=== PATIENT | male | born 1945 | race Caucasian/White ===

== ENCOUNTER 2022-04-30 09:45 | Inpatient (IN) ==
--- NOTE | 2022-04-05 14:26 | PAT Medication Instructions ---
Medication Instructions Date of Service April 05, 2022 Home Medications adalimumab 40 mg/0.4 mL subcutaneous syringe kit (Humira(CF)) 40 mg subcut Q14D ascorbic acid (vitamin C) 500 mg tablet (Vitamin C) 500 mg PO QAM hydrochlorothiazide 25 mg tablet 25 mg PO QAM leflunomide 20 mg tablet 20 mg PO QAM losartan 100 mg tablet 100 mg PO QAM metoprolol succinate 25 mg tablet,extended release 24 hr 25 mg PO QAM pantoprazole 40 mg tablet,delayed release 40 mg PO QAM prednisone 10 mg tablet 10 mg PO QAM vitamin E 400 unit tablet 400 mg PO QAM ASK your prescriber and surgeon adalimumab 40 mg/0.4 mL subcutaneous syringe kit (Humira(CF)) 40 mg subcut Q14D leflunomide 20 mg tablet 20 mg PO QAM STOP taking 2 weeks before surgery vitamin E 400 unit tablet 400 mg PO QAM DO NOT take the morning of surgery ascorbic acid (vitamin C) 500 mg tablet (Vitamin C) 500 mg PO QAM hydrochlorothiazide 25 mg tablet 25 mg PO QAM losartan 100 mg tablet 100 mg PO QAM Take morning of surgery With a small sip of water, OTHERWISE NOTHING TO EAT OR DRINK AFTER MIDNIGHT: metoprolol succinate 25 mg tablet,extended release 24 hr 25 mg PO QAM pantoprazole 40 mg tablet,delayed release 40 mg PO QAM prednisone 10 mg tablet 10 mg PO QAM Other Notes If you have any questions please call us at [phone] or [phone] or [phone] or [phone]
--- NOTE | 2022-04-11 12:15 | Anesthesiology Consultation ---
Date of Service April 11, 2022 Assessment & Plan (1) Encounter for pre-operative examination: Chart Review Chart Review: Pending: Refer to Additional Notes / Consult section (cardio optimization/clearance, anesthesia record from July 2020, and PCP clearance 04/16/22) and Patient seen in Pre Admission Testing - Discussed EKG changes with Dr. Salazar- will refer patient to cardio for optimization prior to surgery (pt prefers [facility] if possible) (Pt aware) - Will attempt to get anesthesia records from [facility] from July 2020 shoulder surgery -Awaiting PCP clearance 04/16/22 Possible difficult intubation- will attempt to get records Per PAT appt on 04/11/22, patient denies any recent travel or large group activities. Pt is vaccinated for Covid. Will leave to surgeon's discretion if preop Covid testing needed. Educated on importance of using Covid precautions one week prior to surgery Teaching & Discussion Pre-Anesthesia Teaching/Discussion Notes: Instructed NPO after midnight before surgery,except medications with 15 cc of water. Medication instructions provided according to the PAT guidelines. History Surgery Operation Date: 04/30/22 11:25 Proposed Procedures p L4-L5 Decompression and Fusion, Spinal Cord Monitoring - Shayne Yang DO Height/Weight Height: 5 ft 9 in Weight: 84 kg Allergies Allergy/AdvReac Type Severity Reaction Status Date / Time No Known Allergies Allergy Verified 04/05/22 12:10 Medications Home Medications Medication Instructions Recorded Confirmed Last Taken adalimumab 40 mg/0.4 mL 40 mg subcut Q14D 04/05/22 04/05/22 Unknown subcutaneous syringe kit (Humira(CF)) ascorbic acid (vitamin C) 500 mg 500 mg PO QAM 04/05/22 04/05/22 Unknown tablet (Vitamin C) hydrochlorothiazide 25 mg tablet 25 mg PO QAM 04/05/22 04/05/22 Unknown leflunomide 20 mg tablet 20 mg PO QAM 04/05/22 04/05/22 Unknown losartan 100 mg tablet 100 mg PO QAM 04/05/22 04/05/22 Unknown metoprolol succinate 25 mg 25 mg PO QAM 04/05/22 04/05/22 Unknown tablet,extended release 24 hr pantoprazole 40 mg tablet,delayed 40 mg PO QAM 04/05/22 04/05/22 Unknown release prednisone 10 mg tablet See Rx Instructions .Route .COMPLEX 12/08/22 12/15/22 Unknown vitamin E 400 unit tablet 400 mg PO QAM 04/05/22 04/05/22 Unknown Past Medical History Medical History (Updated 04/12/22 @ 09:14 by Jane Coley PA-C) Chronic back pain Degenerative disc disease Difficult airway for intubation Told by anesthesiologist with July 2020 RCR at [facility] that he may have a sore lip due to "having a little trouble intubating". Pt has no other details; letter not given GERD (gastroesophageal reflux disease) Well controlled and stable History of London's esophagus Goes for routine EGDs- last EGD showed no issues History of bleeding ulcers No recent issues History of Helicobacter pylori infection . No recent issues. 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 arthritis Follows bitumastic applier - stable Exercise / Class Metabolic Activity II 4-5 Yardwork/Stairs/Walk up hill (one flight of stairs - no chest pain or SOB ) Past Family History Family History Other No family history of adverse response to anesthesia Past Surgical History Surgical History History of adenoidectomy History of bowel resection (~1996) r/t large benign colon polyp History of colonoscopy History of esophagogastroduodenoscopy (EGD) History of repair of rotator cuff right History of tonsillectomy S/P epidural steroid injection lumbar x1 Past Anesthesia History No Hx of Anesthesia Complications, Difficult Airway (possible- will attempt to get records ) and No Family Hx of Anesthesia Complications History of PONV No Hx of PONV and No Hx of Motion Sickness Social History Smoking Status: Former smoker tobacco type: cigarettes Do You Dip or Chew Tobacco: No Smoking End Date: 1981 Hx Alcohol Use: Yes Alcohol type: beer alcohol intake frequency: 3 or more drinks per day (3-4 beers/day ) Hx Substance Use: No substance use type: does not use Review of Systems Occ snoring - no witnessed apnea - no hx of sleep study Patient denies chest pain, shortness of breath, dyspnea on exertion, cough, wheezing, palpitations. No hx of seizures, stroke, [place]. No hx of blood clots or blood transfusions Physical Exam Vital Signs VITALS BP 123/76 P 91 TEMP 98.0 SP02 98% RESP 16 Constitutional no acute distress ENMT Mouth: no TMJ clicking Thyromental Distance: > or= 3.5 Finger Breadths (3.5) Mallampati Class: II Neck + limited neck extension (significant ) Respiratory normal respiratory effort; no respiratory distress Auscultation: lungs clear to auscultation bilaterally; no wheezes Cardiovascular Rate/Rhythm: regular rate and regular rhythm Heart Sounds: no murmur Vessels: no carotid bruit Musculoskeletal Spine: no pain with cervical ROM Extremities: extremities normal to inspection Psychiatric Orientation: alert Lab Results Anesthesia Preop Results Results Anesthesia Widget: WBC 10.07 K/ul (4.8-10.8) 04/11/22 Hgb 13.8 g/dl (14.0-18.0) L 04/11/22 Hct 41.0 % (40.1-51.0) 04/11/22 Plt 217 K/uL (130-400) 04/11/22 Na 136 mmol/L (136-145) 04/11/22 K 3.6 mmol/L (3.5-5.1) 04/11/22 Cl 99 mmol/L (98-107) 04/11/22 CO2 32 mmol/L (21-32) 04/11/22 BUN 19 mg/dl (6-23) 04/11/22 Creat 0.96 mg/dl (0.6-1.4) 04/11/22 Glucose Level 95 mg/dl (70-99(Fasting)) 04/11/22 PT 10.3 Seconds (9.0-12.0) 04/11/22 PTT 25.4 Seconds (21.0-31.0) 04/11/22 INR 1.0 (0.9-1.1) 04/11/22 Urine Color Yellow 04/11/22 Urine Appearance Clear (Clear) 04/11/22 Urine pH 6.0 (4.5-7.5) 04/11/22 Urine Specific [place] 1.016 (1.000-1.030) 04/11/22 Urine Protein Negative (Negative) 04/11/22 Urine Glucose (UA) Negative (Negative) 04/11/22 Urine Ketones Negative (Negative) 04/11/22 Urine Blood Negative (Negative) 04/11/22 Urine Nitrite Negative (Negative) 04/11/22 Urine Bilirubin Negative (Negative) 04/11/22 Urine Urobilinogen Negative (Negative) 04/11/22 Urine Leukocyte Esterase Negative (Negative) 04/11/22 Blood Type O Negative 04/11/22 Antibody Screen NEGATIVE 04/11/22 Testing Electrocardiogram Date: 04/11/22 SR with occ PVCs at 89bpm. LAFB. LVH with QRS widening and repolarization abnormality Possible old anteroseptal infarct Chest X-Ray Date: 04/11/22 FINDINGS: PA and lateral chest radiographs are obtained. No prior studies are available for comparison at the time of dictation. The heart is mildly enlarged noting atherosclerotic calcification of the thoracic aorta. The pulmonary vasculature is noncongested. The lungs and pleural spaces are clear. There is no pneumothorax. The skeletal structures are osteopenic. The bony thorax appears intact. Surgical clips are seen in the upper abdomen. IMPRESSION: Mild cardiomegaly with no active disease in the chest. Cervical Spine Date: 04/11/22 FINDINGS: The cervical spine is visualized from C1 through the superior endplate of T1. There is straightening of the cervical spine. There is 2 mm of anterolisthesis of C4 on C5. This remains unchanged throughout flexion and extension. Prevertebral soft tissues and the C1-C2 interval are intact. No acute fractures identified. [id number] facet degenerative changes within the cervical spine. There is mild disc space narrowing at C2-C3 and C3-C4. There is moderate to severe disc space narrowing at C5-C6 and C6-C7 with endplate osteophytes. IMPRESSION: 1. No fractures within the cervical spine. 2. Approximately 2 mm of anterolisthesis of C4 on C5 which remains unchanged throughout flexion and extension. 3. Degenerative changes as described above. (Discussed with Dr. Salazar- no change with flexion and extension- pt can proceed with surgery in regards to c-spine x ray) COVID-19 Risk Screen Screening Information COVID-19 Screen Date: 04/11/22 Exposure 21 Days Family/Household +COVID Last 21 Days: No Exposure 10 Days Any COVID Exposure Last 10 Days: No Symptoms Last 10 Days Experienced COVID Sx Last 10 Days: No + COVID 0-90 Days COVID + in Last 0-90 Days: No Risk Plan COVID Risk Plan: No Risk Identified Patient Education COVID Preop Screening Education Complete: Yes
[~2022-04-30 09:45] MED LIST: ACETAMINOPHEN 500 MG TAB PO SCH; CeleBREX 200 MG CAP PO SCH; GABAPENTIN 300 MG CAP PO SCH; LR 15ML/HR IV SCH; ceFAZolin 2000MG 2,000 MG/15 ML SYR IV SCH
[2022-04-30] MEDS ORDERED: ATROPINE SULFATE 0.1 MG/ML 10ML SYR IV PRN (10:40)
[2022-04-30] MEDS ORDERED: ePHEDrine sulfate 50 MG/ML AMP IV PRN (10:40)
[2022-04-30] MEDS ORDERED: ONDANSETRON INJ 2 MG/ML 2 ML VIAL IV PRN ×2 (10:40→15:11)
[2022-04-30] MEDS ORDERED: fentaNYL citrate 100 MCG/2 ML VIAL ONE (11:00)
[2022-04-30] MEDS ORDERED: MIDAZOLAM HCL 1 MG/ML 2ML VIAL ONE (11:00)
--- NOTE | 2022-04-30 11:17 | History & Physical Bridge Note ---
Date of Service April 30, 2022 History & Physical Bridge Note I have examined the patient, reviewed the History & Physical and in the interval since the performance of the History & Physical I have noted the following changes of clinical significance: no changes noted
--- NOTE | 2022-04-30 11:18 | History & Physical Report ---
Date of Service April 30, 2022 Assessment & Plan (1) Lumbar disc herniation with radiculopathy: Plan: L4-L5 decompression and fusion History of Present Illness Chief Complaint: Back and leg pain Primary Care Provider: Franchesca Connell MD This is a 69-year-old male who presents with current persistent back and leg pain after failing course of nonoperative care is here for surgical intervention. Allergies Allergy/AdvReac Type Severity Reaction Status Date / Time No Known Allergies Allergy Verified 04/30/22 10:13 Home Medications Medication Instructions Recorded Confirmed Type adalimumab 40 mg/0.4 mL 40 mg subcut Q14D 04/05/22 04/30/22 History subcutaneous syringe kit (Humira(CF)) ascorbic acid (vitamin C) 500 mg 500 mg PO QAM 04/05/22 04/30/22 History tablet (Vitamin C) hydrochlorothiazide 25 mg tablet 25 mg PO QAM 04/05/22 04/30/22 History leflunomide 20 mg tablet (Arava) 20 mg PO QAM 04/05/22 04/30/22 History losartan 100 mg tablet 100 mg PO QAM 04/05/22 04/30/22 History metoprolol succinate 25 mg 25 mg PO QAM 04/05/22 04/30/22 History tablet,extended release 24 hr pantoprazole 40 mg tablet,delayed 40 mg PO QAM 04/05/22 04/30/22 History release (Protonix) prednisone 10 mg tablet See Rx Instructions .Route .COMPLEX 04/05/22 04/30/22 History cholecalciferol (vitamin D3) 10 10 mcg PO DAILY 04/30/22 04/30/22 History mcg (400 unit) tablet (Vitamin D3) Past Med/Surg History Medical History (Updated 04/30/22 @ 11:18 by Shayne Yang DO) Chronic back pain Degenerative disc disease Difficult airway for intubation Told by anesthesiologist with July 2020 RCR at [facility] that he may have a sore lip due to "having a little trouble intubating". Pt has no other details; letter not given GERD (gastroesophageal reflux disease) Well controlled and stable History of London's esophagus Goes for routine EGDs- last EGD showed no issues History of bleeding ulcers No recent issues History of Helicobacter pylori infection . No recent issues. 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 arthritis Follows director script - stable Surgical History History of adenoidectomy History of bowel resection (~1996) r/t large benign colon polyp History of colonoscopy History of esophagogastroduodenoscopy (EGD) History of repair of rotator cuff right History of tonsillectomy S/P epidural steroid injection lumbar x1 Family History Other No family history of adverse response to anesthesia Social History Smoking Status: Former smoker Smoking End Date: 1981; Second Hand Exposure: No; Do You Dip or Chew Tobacco: No; Tobacco Cessation Education Requested by Patient: No Hx Alcohol Use: Yes Alcohol type: beer Hx Substance Use: No Preferred Language: Maori Communication Ability: Effective Wheel Installer Required: No Beliefs That Will Affect Care: None Current Living Situation: Alone Other Information That Helps Us Care for You: No Feels Safe at Home: Yes Safety Concerns: Feels Safe At This Time Assistive Devices: Glasses Physical Exam Physical Exam: Patient is alert and oriented Heart regular rhythm Lungs clear Results & Data Results & Data ([facility]) Vital Signs (Past 12 Hours) Vital Signs Temp Pulse Resp BP Pulse Ox O2 Del Method 04/30/22 10:24 36.7 C 99 H 18 156/79 H 97 Room Air
[2022-04-30] MEDS ORDERED: BUPIVACAINE/EPINEPHRINE 0.5% MPF 1:200,000 30 ML VIAL ONE (11:22)
[2022-04-30] MEDS ORDERED: ceFAZolin 330 MG/ML 1 GM VIAL ONE (11:22)
[2022-04-30] MEDS ORDERED: DEXAMETHASONE SOD INJ 4 MG/ML VIAL ONE (12:12)
[2022-04-30] MEDS ORDERED: LIDOCAINE 2% MPF LOCAL 5 ML VIAL INFIL ONE (12:12)
[2022-04-30] MEDS ORDERED: ONDANSETRON INJ 2 MG/ML 2 ML VIAL ONE (12:12)
[2022-04-30] MEDS ORDERED: PROPOFOL IV EMULSION 10 MG/ML 20 ML VIAL IV ONE (12:12)
[2022-04-30] MEDS ORDERED: ROCURONIUM BROMIDE 10 MG/ML 5 ML VIAL IV ONE ×3 (12:12→12:17)
[2022-04-30] MEDS ORDERED: HYDROmorphone INJ 2 MG/ML SYR/VIAL ONE (12:17)
[2022-04-30] MEDS ORDERED: FLOSEAL HEMOSTATIC MATRIX 10ML TOP ONE (12:23)
[2022-04-30] MEDS ORDERED: GLYCOPYRROLATE 0.2 MG/ML VIAL ONE (12:56)
[2022-04-30] MEDS ORDERED: NEOSTIGMINE METHYLSULFATE 1 MG/ML 10ML VIAL ONE (12:56)
--- NOTE | 2022-04-30 13:23 | Operative Report ---
Post Operative Report Pre & Post Diagnosis Operation Date: 04/30/22 11:25 Pre-Op Diagnosis: Lumbar disc herniation with radiculopathy Post-Op Diagnosis: Lumbar disc herniation with radiculopathy I identified the patient and participated in the time-out.: Yes Procedure Operation Date: 04/30/22 11:25 Actual Procedures #1 lumbar decompression bilaterally of facetectomies and foraminotomies L4-L5. #2 posterior spinal fusion L4-5. #3 placement posterior instrumentation L4-5 per #4 interbody fusion L4-L5. #5 placement of Spira 13 x 26 mm at L4-5 per #6 placement locally harvested morselized autograft in the posterior gutters. #7 placement of I factor plan of the test in the interbody space and posterior gutters. Surgeon Shayne Yang, Flour Distributor None Estimated Blood Loss 50 Findings Consistent with Post-Op Diagnosis Specimens None Indications This is a 69-year-old male who presents above-mentioned diagnosis after failing steps course of nonoperative care is here for the above-mentioned surgery. Description of Procedure Patient was met with identified informed consent obtained. Patient was then taken to the operative suite underwent a patient placed in a prone position the [facility] top Ian frame. All bony prominences well-padded eyes inspected to ensure no external pressure placed upon them. This point the lumbar spine was prepped and draped in normal sterile fashion. Sharp dissection with assistance of Bovie cautery was performed down to and exposing the lamina and transverse processes of L4-L5. From caudal to cephalad fashion complete laminectomy of L4 including bilateral medial facetectomies and foraminotomies was performed addressing severe neuroforaminal disease prickly on the left with extraforaminal disc herniation. After complete decompression pedicle screws were placed at L4-L5 bilaterally with assistance of fluoroscopy and appropriate sized idalmis placed. By way of entrance foraminal approach on the left complete discectomy was performed endplates curetted to subcortical any bone and a 13 x 26 mm spiral cage with I factor tapped in position. The rods were then locked in final position bilaterally. The transverse processes of L4-L5 burred to subcortical bleeding bone. I factor bone of the test and locally harvested mor selized autograft was placed in the posterior gutters. 15 round CRISTIAN drain inserted. The incision was then closed with 1 Vicryl in the fascia 2-0 Vicryl subcutaneously and 4 Monocryl for final skin closure. Steri-Strip sterile dressings placed. Patient waken taken to PACU in stable condition. Please note spinal cord monitoring was utilized at the procedure no changes noted. I attest to the content of the Intraoperative Record and any orders documented therein. Any exceptions are noted below.
[2022-04-30] MEDS: fentaNYL citrate 100 MCG/2 ML VIAL IV PRN ×4 (13:45→14:00)
--- NOTE | 2022-04-30 13:47 | Fluoroscopy Report ---
INTRAOPERATIVE RADIOGRAPHS CLINICAL HISTORY: L4-L5 spinal fusion. Fluoroscopy time: 20 seconds. FINDINGS: 2 spot fluoroscopic views of the lumbar spine are presented. There has been discectomy at L 4-L5 with laminectomy and posterior fusion at this level. Interpedicular screws are in place. The ort hopedic hardware appears intact. IMPRESSION: Intraoperative images from lumbar spinal fusion surgery as above. Electronically signed by: Saeid Dorantes M.D. 04/30/2022 1:45 PM
--- NOTE | 2022-04-30 15:03 | Anesthesiology Progress Note ---
Date of Service April 30, 2022 Anesthesia Post Procedure Vital Signs Vital Signs: Temp Pulse Pulse Resp BP Pulse Ox O2 Del Method 04/30/22 14:40 36.3 C L 83 12 136/72 98 Nasal Cannula 04/30/22 14:30 36.3 C L 85 12 140/74 98 Nasal Cannula 04/30/22 14:20 36.3 C L 87 11 L 135/73 97 Nasal Cannula 04/30/22 14:00 91 H 18 145/72 H 98 Oxymask 04/30/22 13:50 91 H 18 149/75 H 99 Oxymask 04/30/22 14:10 89 14 143/77 H 96 Oxymask 04/30/22 13:40 101 H 16 135/75 99 Oxymask 04/30/22 13:32 36.2 C L 108 H 11 L 153/73 H 98 Oxymask 04/30/22 10:24 36.7 C 99 H 18 156/79 H 97 Room Air O2 Flow Rate 04/30/22 14:40 2 04/30/22 14:30 2 04/30/22 14:20 2 04/30/22 14:00 3 04/30/22 13:50 3 04/30/22 14:10 2 04/30/22 13:40 4 04/30/22 13:32 5 04/30/22 10:24 Pain Intensity Right Hand: Pain Intensity: 6 Lower Back: Pain Intensity: 2 Transfer of Care Handoff Completed per policy Notes Mental Status: alert / awake / arousable Patient Amnestic to Procedure: Yes Nausea / Vomiting: adequately controlled Pain: adequately controlled Airway Patency, RR, SpO2: stable & adequate BP & HR: stable & adequate Hydration State: stable & adequate Anesthetic Complications: no major complications apparent
[2022-04-30] MEDS ORDERED: PROMETHAZINE HCL 12.5 MG in SODIUM CHLORIDE 0.9% 50 ML IV PRN (15:11)
[2022-04-30] MEDS ORDERED: DO NOT ADMINISTER FLU VACCINE PRN (15:11)
[2022-04-30] MEDS ORDERED: HYDROmorphone INJ 0.5 MG/0.5 ML SYR IV PRN (15:11)
[2022-04-30] MEDS ORDERED: diphenhydrAMINE Capsule 25 MG CAP PO PRN (15:11)
[2022-04-30] MEDS ORDERED: ONDANSETRON 4 MG OD TAB PO PRN (15:11)
[2022-04-30] MEDS ORDERED: SOD PHOSPHATE/SOD BIPHOSPHATE ENEMA 132 ML BTL PR PRN (15:11)
[2022-04-30] MEDS ORDERED: NALOXONE HCL 0.4 MG/1 ML VIAL/CARP IV PRN (15:11)
[2022-04-30] MEDS ORDERED: LORazepam 2 MG/1 ML VIAL IV PRN (15:11)
[2022-04-30] MEDS ORDERED: traMADol HCL 50 MG TABLET PO PRN (15:11)
[2022-04-30] MEDS ORDERED: METOCLOPRAMIDE HCL INJ 5 MG/ML 2 ML VIAL IV PRN (15:11)
[2022-04-30] MEDS ORDERED: ACETAMINOPHEN 1,000 MG/100 ML VIAL IV PRN (15:11)
[2022-04-30] MEDS ORDERED: bisacodyL 10 MG SUPP PR PRN (15:11)
[2022-04-30] MEDS ORDERED: HYDROmorphone INJ 1 MG/ML SYRINGE IV PRN (15:11)
[2022-04-30] MEDS ORDERED: MAGNESIUM HYDROXIDE SUSP 30 ML UDC PO PRN (15:11)
[2022-04-30] MEDS ORDERED: ALUMINUM/MAGNESIUM SUSP 30 ML UDC PO PRN (15:11)
[2022-04-30] MEDS ORDERED: DO NOT ADMINISTER PNEUMOCOCCAL VACCINE PRN (15:11)
[2022-04-30] MEDS ORDERED: hydrOXYzine HCl 25 MG TAB PO PRN (15:11)
[2022-04-30] MEDS ORDERED: FAMOTIDINE 20 MG TAB PO PRN (15:11)
[2022-04-30] MEDS ORDERED: LORazepam 0.5 MG TAB PO PRN (15:11)
[2022-04-30] MEDS: LACTATED RINGER'S 1,000 ML IV SCH ×2 (15:35→17:43)
[2022-04-30] MEDS: ACETAMINOPHEN 500 MG TAB PO PRN (15:40)
[2022-04-30] MEDS ORDERED: NON-FORMULARY PATIENT'S OWN MED PRN (15:48)
--- NOTE | 2022-04-30 15:53 | Hospitalist Consultation ---
Date of Consultation April 30, 2022 Assessment & Plan (1) Lumbar disc herniation with radiculopathy: POD #0 - Lumbar decompression and fusion. We have been consulted to assist with post-operative medical management. - Pain control, DVT prophylaxis, PT/OT/activity per primary service - Discussed with patient the importance of incentive spirometry - Labs in AM - monitor for post-op anemia (EBL 50 ml) - Diet as tolerated - continue IVF for now, reassess in AM (2) Rheumatoid arthritis: Pt with current flare of symptoms in right hand, likely related to no Humira on 04/25, prednisone being tapered. Pt receiving post-operative dexamethasone x 3 days. - Restart outpatient prednisone 5 mg daily tomorrow AM - may need to increase prednisone back to 20 mg daily pending clinical response - Next dose of Humira is due May 09 (3) Hypertension: BP mildly elevated at present but pt having post-operative pain. Will continue to monitor - Resume outpatient regimen (4) Gout: - Uric acid level in AM (5) GERD (gastroesophageal reflux disease): - Continue outpatient PPI Plan Pt reports 2-3 beers daily but no hx withdrawal. Will add thiamine and folic acid. Has prn lorazepam already ordered. Pt's current HR in the 90s but he reports that this is his baseline. Will continue to monitor. Pt seen and reviewed with collaborating physician, Dr. Cr. Plan of care discussed and as outlined above. Thank you for this consultation. We will continue to follow this patient with you. A member of the [facility]ist team is available 19/11 via [employer]. Please do not hesitate to reach out with questions. Huey Garcia PA-C Supervising Physician Co-Signing Physician Notes Patient is a 77-year-old male with history of rheumatoid arthritis, GERD, gout, hypertension and other medical problems was consulted for postop medical management patient had lumbar surgery for lumbar disc herniation with radiculopathy. Patient is doing well postoperatively. He states having minimal pain at surgical site. Also states having rheumatoid arthritis flare has he noticed R fingers swollen and tender. He is due for his Humira dose. Denies any chest pain, shortness breath, dizziness, nausea, abdominal pain. Prior records reviewed. Imaging studies reviewed as well. On exam patient is well- built and nourished, no apparent distress, normocephalic atraumatic, EOMI, normal breath sounds, clear to auscultation, S1-S2, no murmur, no pedal edema, abdomen soft, nontender, Back: Surgical site in dressing, normal bowel sounds, alert, awake, oriented, grossly no focal deficits. Right carpometacarpal joints tender, swollen. Lumbar disc herniation with radiculopathy S/P surgery Dr. Yang. POD # 0 Pain is controlled Monitor for post OP anemia Bowel regimen to prevent constipation Activity & DVT Px as per Primary team IV fluids Rheumatoid arthritis On chronic prednisone Follows with rheumatology as outpatient On IV Decadron postoperatively Will consider to increase prednisone dose if needed Alcohol use disorder Monitor for any withdrawal Started on thiamine, folic acid On Ativan PRN I personally reviewed the record. Patient is interviewed and examined at bedside. Patient's care is coordinated with Kavita Garcia PA-C. Please refer to the documentation above for details of patient's presentation and for discussion of other issues. History of Present Illness Reason for Consultation: Post-operative medical management Requesting Physician: Dr. Shayne Yang Attending Physician: Shayne Yang, DO History of Present Illness This is a 77 y/o male with a PMH of RA on chronic prednisone, HTN, GERD, hx PUD, and hx gout who underwent lumbar decompression and fusion today by Dr. Yang. We have been consulted to assist with post-operative medical management. Pt reports gradually worsening lumbar pain with associated LE pain and weakness. Pain is worst at the knee area, knee has given out on him at least three times. Currently, he is having some lower back pain but LE symptoms are improved at present. Denies chest pain, dyspnea, SINGH, dizziness, N/V. Pt was recently started on Humira for RA - had four doses total before surgery with last dose on 04/11 (held dose). Pt is also on chronic prednisone, which they were attempting to taper down prior to surgery. He was on 20 mg daily, developed a flare when decreased to 10 mg so they increased back to 20 mg for five days before going back to 10 mg. He seemed to be doing okay at this dose so prednisone was decreased to 5 mg daily a few days ago. This morning, he noted a flare starting in his right hand, specifically complaining of pain in the 3rd MCP joint but swelling across his knuckles. Pt reports drinking 2-3 beers daily - no hx of withdrawal symptoms when misses a day. Allergies Allergy/AdvReac Type Severity Reaction Status Date / Time No Known Allergies Allergy Verified 04/30/22 10:13 Home Medications Medication Instructions Recorded Confirmed Type adalimumab 40 mg/0.4 mL 40 mg subcut Q14D 04/05/22 04/30/22 History subcutaneous syringe kit (Humira(CF)) ascorbic acid (vitamin C) 500 mg 500 mg PO QAM 04/05/22 04/30/22 History tablet (Vitamin C) hydrochlorothiazide 25 mg tablet 25 mg PO QAM 04/05/22 04/30/22 History leflunomide 20 mg tablet (Arava) 20 mg PO QAM 04/05/22 04/30/22 History losartan 100 mg tablet 100 mg PO QAM 04/05/22 04/30/22 History metoprolol succinate 25 mg 25 mg PO QAM 04/05/22 04/30/22 History tablet,extended release 24 hr pantoprazole 40 mg tablet,delayed 40 mg PO QAM 04/05/22 04/30/22 History release (Protonix) prednisone 10 mg tablet See Rx Instructions .Route .COMPLEX 04/05/22 04/30/22 History cholecalciferol (vitamin D3) 10 10 mcg PO DAILY 04/30/22 04/30/22 History mcg (400 unit) tablet (Vitamin D3) Patient History Medical History (Updated 04/30/22 @ 16:20 by Kavita Garcia PA-C) Chronic back pain Degenerative disc disease Difficult airway for intubation Told by anesthesiologist with July 2020 [facility] at [facility] that he may have a sore lip due to "having a little trouble intubating". Pt has no other details; letter not given GERD (gastroesophageal reflux disease) Well controlled and stable Gout History of London's esophagus Goes for routine EGDs- last EGD showed no issues History of bleeding ulcers No recent issues History of Helicobacter pylori infection . No recent issues. 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 Surgical History History of adenoidectomy History of bowel resection (~1996) r/t large benign colon polyp History of colonoscopy History of esophagogastroduodenoscopy (EGD) History of repair of rotator cuff right History of tonsillectomy S/P epidural steroid injection lumbar x1 Family History Other No family history of adverse response to anesthesia Social History Smoking Status: Former smoker Smoking End Date: 1981; Second Hand Exposure: No; Do You Dip or Chew Tobacco: No; Tobacco Cessation Education Requested by Patient: No Hx Alcohol Use: Yes Alcohol type: beer Hx Substance Use: No Preferred Language: Bengali Communication Ability: Effective Unit Secy Required: No Beliefs That Will Affect Care: None Current Living Situation: Alone Other Information That Helps Us Care for You: No Feels Safe at Home: Yes Safety Concerns: Feels Safe At This Time Assistive Devices: Glasses Review of Systems Review of Systems: All systems reviewed & are unremarkable except as noted in HPI & below Constitutional: no fever and no chills Eyes: no diplopia and no worsening vision Ear, Nose, Mouth, Throat: no sore throat and no dysphagia Respiratory: no cough and no dyspnea Cardiovascular: no chest pain and no palpitations Gastrointestinal: no abdominal pain, no nausea and no vomiting Genitourinary: no dysuria or no hematuria Musculoskeletal: + back pain Integumentary: no yellowing of the skin Neurologic: as per Subjective / HPI; no dizziness and no headache(s) Psychiatric: no depression and no anxiety Physical Exam Constitutional: well developed and well nourished; no acute distress Eyes: + anicteric sclerae Neck: trachea midline Respiratory: no respiratory distress and no labored breathing Auscultation: lungs clear to auscultation bilaterally Cardiovascular: Rate/Rhythm: regular rate and regular rhythm Heart Sounds: no murmur Vessels: dorsalis pedis pulses present and radial pulses present Extremities: no pedal edema Gastrointestinal (Abdomen): Inspection/Auscultation: normal bowel sounds; abdo men not distended Percussion/Palpation: abdomen soft; abdomen nontender Musculoskeletal: Head/Neck/Chest: normocephalic, head atraumatic and neck supple right hand with mild swelling of MCP joints - worse over 2nd and 3rd joints. mild tenderness right 3rd MCP joint. No erythema or warmth no swelling left hand Skin: no jaundice CRISTIAN drain in place Neurologic: moves all extremities; no focal motor deficits and not confused Psychiatric: A+Ox3, euthymic affect Results & Data Results & Data ([facility]) Vital Signs (Past 12 Hours) Vital Signs Temp Pulse Pulse Resp BP BP Pulse Ox 04/30/22 15:33 36.5 C 92 H 20 142/83 H 95 04/30/22 15:00 36.4 C L 99 H 18 150/79 H 96 04/30/22 14:40 36.3 C L 83 12 136/72 98 04/30/22 14:30 36.3 C L 85 12 140/74 98 04/30/22 14:20 36.3 C L 87 11 L 135/73 97 04/30/22 14:00 91 H 18 145/72 H 98 04/30/22 13:50 91 H 18 149/75 H 99 04/30/22 14:10 89 14 143/77 H 96 04/30/22 13:40 101 H 16 135/75 99 04/30/22 13:32 36.2 C L 108 H 11 L 153/73 H 98 04/30/22 10:24 36.7 C 99 H 18 156/79 H 97 O2 Del Method O2 Flow Rate 04/30/22 15:33 Nasal Cannula 2 04/30/22 15:00 Nasal Cannula 2 04/30/22 14:40 Nasal Cannula 2 04/30/22 14:30 Nasal Cannula 2 04/30/22 14:20 Nasal Cannula 2 04/30/22 14:00 Oxymask 3 04/30/22 13:50 Oxymask 3 04/30/22 14:10 Oxymask 2 04/30/22 13:40 Oxymask 4 04/30/22 13:32 Oxymask 5 04/30/22 10:24 Room Air Laboratory Results 04/30/22 Unknown SARS-CoV-2, RNA, NAAT NEGATIVE Medications Administered Acetaminophen (Acetaminophen 500 Mg Tab) 1,000 mg PO PREOP VITOR Stop: 04/30/22 18:00 Last Admin: 04/30/22 10:39 Dose: 1,000 mg Documented By: EAC Acetaminophen (Acetaminophen 500 Mg Tab) 1,000 mg PO Q8H PRN PRN Reason: MILD Pain Scale 1,2,3 & Pre PT Stop: 05/30/22 15:10 Last Admin: 04/30/22 15:40 Dose: 1,000 mg Documented By: RT Celecoxib (Celebrex 200 Mg Cap) 200 mg PO PREOP VITOR Stop: 04/30/22 18:00 Last Admin: 04/30/22 10:39 Dose: 200 mg Documented By: EAC Fentanyl Citrate (Fentanyl Citrate 100 Mcg/2 Ml Vial) 25 mcg IV Q5M PRN PRN Reason: PACU Use Only-Pain Stop: 04/30/22 18:41 Last Admin: 04/30/22 14:00 Dose: 25 mcg Documented By: Admin: 04/30/22 13:55 Dose: 25 mcg Documented By: Admin: 04/30/22 13:50 Dose: 25 mcg Documented By: Admin: 04/30/22 13:45 Dose: 25 mcg Documented By: LML Gabapentin (Gabapentin 300 Mg Cap) 300 mg PO PREOP VITOR Stop: 04/30/22 18:00 Last Admin: 04/30/22 10:39 Dose: 300 mg Documented By: EAC Cefazolin Sodium (Ancef 2000mg) 2,000 mg in 15 mls @ 3.75 mls/min IV PREOP VITOR; Protocol Stop: 04/30/22 18:00 Last Admin: 04/30/22 11:42 Dose: 3.75 mls/min Documented By: EAC Lactated Ringer's (Lr) 1,000 mls @ 15 mls/hr IV .Q24H VITOR Stop: 05/01/22 05:59 Last Infusion: 04/30/22 11:42 Dose: 0 mls/hr Documented By: Admin: 04/30/22 10:19 Dose: 15 mls/hr Documented By: EAC Lactated Ringer's (Lr) 1,000 mls @ 100 mls/hr IV .Q10H VITOR Stop: 05/01/22 11:10 Last Admin: 04/30/22 15:35 Dose: 100 mls/hr Documented By: RT Discontinued Medications Bupivacaine HCl/Epinephrine Bitart (Bupivacaine/Epinephrine 0.5% Mpf 1:200,000 30 Ml Vial) Confirm Administered Dose 30 ml .ROUTE .STK-MED ONE Stop: 04/30/22 11:23 Last Admin: 04/30/22 12:22 Dose: 15 ml Documented By: TORY Cefazolin Sodium (Cefazolin 330 Mg/Ml 1 Gm Vial) Confirm Administered Dose 990 mg .ROUTE .STK-MED ONE Stop: 04/30/22 11:23 Last Admin: 04/30/22 12:23 Dose: 1,000 mg Documented By: TORY Miscellaneous ( Floseal Hemostatic Matrix 10ml) 10 ml TOP ONCE ONE Stop: 04/30/22 12:24 Last Admin: 04/30/22 13:06 Dose: 14 ml Documented By: TORY
[2022-04-30] MEDS: dexAMETHasone 6 MG in SYRINGE 0 ML IV SCH ×2 (17:09→23:49)
[2022-04-30] MEDS: predniSONE 5 MG TAB PO SCH (17:11)
[2022-04-30] MEDS ORDERED: TRIAMCINOLONE ACET NASAL SPRAY 10.8ML BTL PRN ×2 (17:52→18:15)
[2022-04-30] MEDS: ceFAZolin 2000MG 2,000 MG/15 ML SYR IV SCH (18:37)
[2022-04-30] MEDS: DOCUSATE SODIUM/SENNA 50/8.6MG TAB PO SCH (19:32)
[2022-05-01] MEDS: ceFAZolin 2000MG 2,000 MG/15 ML SYR IV SCH (01:59)
[2022-05-01] MEDS: POLYETHYLENE (MIRALAX) 17 GM PACK PO SCH ×2 (06:23→11:46)
[2022-05-01] MEDS: THIAMINE HCL 100 MG TAB PO SCH (07:25)
[2022-05-01] MEDS: dexAMETHasone 6 MG in SYRINGE 0 ML IV SCH (07:25)
[2022-05-01] MEDS: LOSARTAN POTASSIUM 50 MG TAB PO SCH (07:25)
[2022-05-01] MEDS: PANTOprazole 40 MG TAB PO SCH (07:26)
[2022-05-01] MEDS: FOLIC ACID 1 MG TAB PO SCH (07:26)
[2022-05-01] MEDS: CHOLECALCIFEROL 400 UNITS 10 MCG TAB PO SCH (07:30)
[2022-05-01] MEDS: METOPROLOL SUCC 25MG EXT REL TAB PO SCH (07:30)
[2022-05-01] MEDS: ASCORBIC ACID 500 MG TAB PO SCH (07:30)
[2022-05-01] MEDS: predniSONE 5 MG TAB PO SCH (07:30)
[2022-05-01] MEDS: hydroCHLOROthiazide 25 MG TAB PO SCH (07:31)
[2022-05-01] MEDS: ACETAMINOPHEN 500 MG TAB PO PRN ×2 (07:38→19:37)
[2022-05-01] MEDS ORDERED: predniSONE 5 MG TAB PO SCH (09:00)
[2022-05-01 09:59] LABS: Hematocrit (blood only) 34.3 % (40.1-51.0); Hemoglobin 11.6 g/dl (14.0-18.0); Mean Corpuscular Hemoglobin 30.8 pg (25.0-34.0); Mean Corpuscular Hgb Conc 33.8 g/dL (32.0-36.0); Mean Platelet Volume 10.9 fL (9.4-12.4); Platelet Count 277 K/uL (130-400); RDW Coefficient of Variation 12.3 % (11.5-14.5); Red Blood Count 3.77 M/uL (4.63-6.08)
[2022-05-01 10:24] LABS: Basophils # (auto) 0.03 K/uL (0-0.2); Basophils % (auto) 0.1 %; Immature Granulocytes # (auto) 0.15 K/uL (0.00-0.02); Immature Granulocytes % (auto) 0.6 %; Lymphocytes # (auto) 0.64 K/uL (1.2-3.4); Lymphocytes % (auto) 2.8 %; Monocytes # (auto) 0.74 K/uL (0.24-0.82); Monocytes % (auto) 3.2 %; Neutrophils # (auto) 21.54 K/uL (1.4-6.5); Neutrophils % (auto) 93.3 %; RBC Morphology Unremarkable
[2022-05-01 10:59] LABS: BUN Creatinine Ratio 18.1 (10-20); Calcium 8.9 mg/dl (8.5-10.1); Creatinine Clr Calc Pharmacy 73.4 ml/min; Est GFR (African American) 97.7 ml/min; Est GFR (Non-African American) 84.3 ml/min; Magnesium 1.9 mg/dl (1.7-2.4); Potassium 3.8 mmol/L (3.5-5.1); Uric Acid 2.9 mg/dl (2.6-7.2)
--- NOTE | 2022-05-01 11:40 | Orthopedic Progress Note ---
Date of Service May 01, 2022 Assessment & Plan (1) Lumbar disc herniation with radiculopathy: Plan: At this time we will continue physical therapy monitor his CRISTIAN output anticipate possible discharge home tomorrow. Admission and Anticipated Discharge Date Admission Date: April 30, 2022 Subjective Back pain controlled leg symptoms markedly improved Physical Exam Physical Exam: Patient has good strength testing. Is comfortable. Results & Data ([facility]) Vital Signs (Past 12 Hours) Vital Signs Temp Pulse Resp BP Pulse Ox O2 Del Method 05/01/22 07:01 36.7 C 105 H 18 128/75 94 Room Air 05/01/22 02:12 36.7 C 96 H 16 144/73 H 94 Room Air
--- NOTE | 2022-05-01 14:06 | Hospitalist Progress Note ---
Date of Service May 01, 2022 Assessment & Plan (1) Lumbar disc herniation with radiculopathy: Plan: Lumbar disc herniation with radiculopathy S/P surgery Dr. Yang. POD # 1 Pain is controlled Monitor for post OP anemia Bowel regimen to prevent constipation Activity & DVT Px as per Primary team PT/OT as able Leukocytosis likely reactive secondary to steroids, postoperative state (2) Rheumatoid arthritis: Plan: Rheumatoid arthritis flare Reports Right Hand swelling/Jt tenderness improving Normal uric acid levels Follows with rheumatology as outpatient Received IV Decadron postoperative Continue chronic prednisone May need to increase prednisone dose if needed Next dose of Humira is due May 09 Hyperglycemia Likely secondary to steroids Check HbA1c No history of diabetes Alcohol use disorder Monitor for any withdrawal Started on thiamine, folic acid On Ativan PRN (3) Hypertension: Plan: Continue current medications Monitor BP (4) Gout: Plan: Stable (5) GERD (gastroesophageal reflux disease): Plan: - Continue PPI Plan DVT Px: As per Primary Team Code Status Full Code Admission and Anticipated Discharge Date Admission Date: April 30, 2022 Subjective Patient is seen and examined at bedside Feels better today Back pain is under control Right hand swelling, pain improved Denies any chest pain, shortness of breath, dizziness, nausea, abdominal pain + Flatus, no bowel movement Discussed with patient's family at bedside Review of Systems Review of Systems: All systems reviewed & are unremarkable except as noted in Subjective Physical Exam Physical Exam: Physical Exam: Vitals signs as noted above General Appearance:Moderately built and nourished, no apparent distress Head: normocephalic, Atraumatic Eyes: normal inspection, EOMI Neck: supple, Trachea midline Respiratory/Chest: Normal breath sounds, CTA, No accessory muscle use Cardiovascular: S1, S2, No murmur Abdomen/GI:Soft, Non tender, Bowel sounds present Back: Surgical site in dressing Extremities/Musculoskeletal:normal inspection, RightCarpo-MCP Jts swelling/tenderness improving Neurologic/Psych:AAOX3, grossly no focal neurological deficits Skin: normal color, warm Results & Data Results & Data ([facility]) Vital Signs (Past 12 Hours) Vital Signs Temp Pulse Resp BP Pulse Ox O2 Del Method 05/01/22 07:01 36.7 C 105 H 18 128/75 94 Room Air 05/01/22 02:12 36.7 C 96 H 16 144/73 H 94 Room Air Laboratory Results Short CBC 05/01/22 Range/Units 08:33 WBC 23.10 H (4.8-10.8) K/ul Hgb 11.6 L (14.0-18.0) g/dl Hct 34.3 L (40.1-51.0) % Plt Count 277 (130-400) K/uL BMP 05/01/22 08:33 Sodium 132 L Potassium 3.8 Chloride 99 Carbon Dioxide 26 BUN 15 Creatinine 0.83 Glucose 210 H Calcium 8.9
[2022-05-01] MEDS: oxyCODONE HCL IR 5 MG TAB (IMMEDIATE RELEASE) PO PRN (19:29)
[2022-05-01] MEDS: DOCUSATE SODIUM/SENNA 50/8.6MG TAB PO SCH (20:54)
[2022-05-02] MEDS: oxyCODONE HCL IR 5 MG TAB (IMMEDIATE RELEASE) PO PRN ×3 (01:28→12:12)
[2022-05-02] MEDS: THIAMINE HCL 100 MG TAB PO SCH (08:32)
[2022-05-02] MEDS: hydroCHLOROthiazide 25 MG TAB PO SCH (08:32)
[2022-05-02] MEDS: FOLIC ACID 1 MG TAB PO SCH (08:32)
[2022-05-02] MEDS: METOPROLOL SUCC 25MG EXT REL TAB PO SCH (08:32)
[2022-05-02] MEDS: predniSONE 5 MG TAB PO SCH (08:32)
[2022-05-02] MEDS: CHOLECALCIFEROL 400 UNITS 10 MCG TAB PO SCH (08:33)
[2022-05-02] MEDS: ASCORBIC ACID 500 MG TAB PO SCH (08:33)
[2022-05-02] MEDS: PANTOprazole 40 MG TAB PO SCH (08:33)
[2022-05-02] MEDS: LOSARTAN POTASSIUM 50 MG TAB PO SCH (08:34)
[2022-05-02] MEDS ORDERED: LEFLUNOMIDE 10 MG TAB PO SCH (09:00)
[2022-05-02 09:28] LABS: Hematocrit (blood only) 32.5 % (40.1-51.0); Hemoglobin 10.9 g/dl (14.0-18.0); Mean Corpuscular Hemoglobin 30.3 pg (25.0-34.0); Mean Corpuscular Hgb Conc 33.5 g/dL (32.0-36.0); Mean Corpuscular Volume 90.3 fL (80.0-100.0); Mean Platelet Volume 10.6 fL (9.4-12.4); Platelet Count 233 K/uL (130-400); RDW Coefficient of Variation 12.4 % (11.5-14.5); RDW Standard Deviation 40.6 fL (36.4-46.3); White Blood Count 15.31 K/ul (4.8-10.8)
[2022-05-02 09:54] LABS: BUN Creatinine Ratio 25.6 (10-20); Calcium 9.2 mg/dl (8.5-10.1); Creatinine Clr Calc Pharmacy 78.1 ml/min; Est GFR (African American) 100.2 ml/min; Est GFR (Non-African American) 86.5 ml/min; Potassium 3.6 mmol/L (3.5-5.1)
[2022-05-02 10:40] LABS: Estimated Average Glucose 114 mg/dl; Hemoglobin A1C 5.6 % (4.5-5.6)
--- NOTE | 2022-05-02 11:20 | Discharge Summary ---
Date of Service May 02, 2022 Admission HPI Per Admitting Provider This is a 69-year-old male who presents with current persistent back and leg pain after failing course of nonoperative care is here for surgical intervention. Principal Diagnosis Lumbar spinal stenosis with radiculopathy Discharge Data Allergies Allergy/AdvReac Type Severity Reaction Status Date / Time No Known Allergies Allergy Verified 04/30/22 10:13 Consultations 04/30/22 15:11 Consult Hospitalist Routine Procedures Performed Operation Date: 04/30/22 11:25 Actual Procedures p L4-L5 Decompression and Fusion, Spinal Cord Monitoring(Not Applicable) - Shayne Yang DO Ordered Studies 04/30/22 11:25 FL lumbar spine 2-3V Routine Hospital Course (1) Lumbar disc herniation with radiculopathy: Patient underwent lumbar decompression fusion tolerated this well was taken to orthopedic for postoperative. Postop day 1 he was up and ambulating progressed to postop day #2. Pain well controlled. Excellent strength testing. CRISTIAN drain decreasing appropriately. Subsequent discharge home. Discharge orders instructions from the chart for further review. Total Time Total Time Spent Total Time Spent (In Minutes): 20 minutes Discharge Plan Discharge Items Patient Disposition: Home - Self-Care Reason For Visit: Disc Disorders with Radiculopathy, Lumbar Region Discharge Diagnosis: Lumbar spinal stenosis with herniated nucleus pulposus and radiculopathy Activity: As commented below Non-emergency contact: Primary Care Provider Call non-emergency contact if: you have any medication questions Follow-up/Referrals: Franchesca Connell MD [Primary Care Provider] - Diet: Regular Addtl Attending Provider Instructions: ACTIVITY RECOMMENDATIONS: SELF CARE INSTRUCTIONS AFTER THORACIC/LUMBAR FUSIONS 1. You may walk to your tolerance. It is good exercise for your legs and back. Expect some back and intermittent leg aches and pains. 2. You may perform "counter-top" level activities (make a sandwich, nuha with a project, etc.). 3. No bending or lifting of more than 10 pounds or back twisting of any nature (roll like a log when turning in bed). 4. You may ride in a car for 20-30 minutes at a time. No driving until after your first visit with your doctor. 5. Frequent changes of position and restricting sitting to 30 minutes at a time will help limit the amount of back spasms and stiffness you may experience. 6. You may discontinue the use of ambulatory aids (cane, crutches, etc.) once your strength and confidence allow. 7. You may interface engineer the shower and let water strike your incision when you a rrive home at least once daily. Do not take a tub bath, sit in a hot tub or go into a swimming pool until after your first recheck in the office. SPECIAL CARE INSTRUCTIONS: VERY IMPORTANT TO READ AND REVIEW A. Your surgical incision has been closed with a cosmetic suture under the skin that will dissolve in about 6 weeks. In 14 days, you can use a pair of clean scissors and cut the suture that is left outside of the skin at the ends of your incision. 1. The small skin tapes can be removed 7 days after surgery if they have not fallen off by that point. 2. You may keep the wound open to air as much as possible to promote healing after post-op day number 5 unless told otherwise by your doctor. 3. If you think the wound looks like it is becoming infected (redness or worsening drainage) and/or you are experiencing fever, chill or worsening back pain and muscle spasms, contact the office so that we may evaluate you as soon as possible. B. Complications are uncommon, but please contact us if you have any signs or symptoms of: 1. wound infection (fever higher than 102.5 degrees F, redness, separation of wound, drainage, or increasing pain from the incision) 2. blood clots in legs (pain, swelling, redness and warmth in legs) 3. urinary tract infection (fever higher than 102.5 degrees F, burning upon urination or increased frequency of urination) 4. nerve problems (inability to walk on your toes or heels, numbness, loss of bowel or bladder control) 5. any other symptoms that concern you C. Please call the office at if you have any concerns or questions about your operation or recovery. D. No smoking! Smoking drastically decreases the chance of a solid fusion. E. Do not take any anti-inflammatory medications (Indocin, Advil, Motrin, Aspirin, Naprosyn, etc.) as these may inhibit the chance of a solid fusion. Tylenol is okay to take for pain. MANAGING PAIN AFTER SPINAL SURGERY 1. Narcotic medication is intended for short-term use and will be provided for surgical pain. Surgical pain usually lasts for a period of 4-6 weeks. Narcotic medication includes Percocet, Vicodin, Darvocet, Tylenol #3 or Lortab. 2. Longer-term pain is more appropriately treated with non-narcotic medication such as Tylenol ES. 3. Muscle spasm is not appropriately treated with narcotics. Muscle relaxers such as Soma, Flexeril or Skelaxin can be used along with Tylenol ES. 4. Remember that we all live with some "aches and pains". This is not unusual or uncommon after an injury or as we get older. a. Back pain is expected and may include muscle spasms for 4 to 6 weeks afte r surgery. The pain should gradually improve. If the pain worsens for no apparent reason, please contact the office. b. Intermittent leg pain may also be experienced and should not be concerned about unless it worsens for no apparent reason. If so, please contact the office. 5. We will provide appropriate medication within the normal guidelines of their prescribed use. We will also be very cautious and aware of potential abuse and extended duration of patients' medication needs. a. Pain medications are for your comfort and to assist with sleep and rest so that the tissue can heal. They are not provided in order to return to normal activity and should not be used through the day. To do so or worsening pain at night can result from ongoing tissue damage and development of tolerance to the prescribed medicine. 6. Please allow 2-3 days to process refills. Prescriptions will not be mailed but must be picked up at the office. FOLLOW UP VISIT: Keep your scheduled follow-up appointment. Any questions, please call the office at . Pending Studies at Discharge: No Stand-Alone Forms: [facility], Sm[facility] Cessation Medications and DC Order Prescriptions: New tramadol 50 mg tablet 50 mg PO Q6H PRN (Reason: pain, moderate) Qty: 30 0RF oxycodone 5 mg tablet 5 mg PO Q6H PRN (Reason: pain, severe) Qty: 30 0RF Continued prednisone 10 mg Tablet See Rx Instructions .ROUTE .COMPLEX Rx Instructions: Tapering down to 5mg daily by DOS leflunomide [Arava] 20 mg Tablet 20 mg PO ELMA Humira(CF) 40 mg/0.4 mL Syringe Kit 40 mg SUBCUT Q14D Rx Instructions: inject one - 40 mg/0.8 mL syringe every 2 weeks pantoprazole [Protonix] 40 mg Tablet,Delayed Release (Dr/Ec) 40 mg PO QAM hydrochlorothiazide 25 mg Tablet 25 mg PO QAM metoprolol succinate 25 mg Tablet Extended Release 24 Hr 25 mg PO QAM losartan 100 mg Tablet 100 mg PO QAM ascorbic acid (vitamin C) [Vitamin C] 500 mg Tablet 500 mg PO QAM cholecalciferol (vitamin D3) [Vitamin D3] 10 mcg (400 unit) Tablet 10 mcg PO DAILY Discharge Orders: Discharge Order (Routine); Ordered 05/02/22 Ordered By: Shayne Yang Admission Data Admit Date/Time: 04/30/22 13:27 Attending Provider: Shayne Yang Admit Provider: Shayne Yang Primary Care Provider: Franchesca Connell Other Providers: Sallie Mckeon ; Arsalan Marie
--- NOTE | 2022-05-02 15:36 | Hospitalist Progress Note ---
Date of Service May 02, 2022 Assessment & Plan (1) Lumbar disc herniation with radiculopathy: Plan: Lumbar disc herniation with radiculopathy S/P surgery Dr. Yang. POD # 2 Pain is controlled No fever, chills, chest pain, shortness of breath. Bowel and bladder habits normal. Leukocytosis secondary to steroid use Hemoglobin stable at 10.9. (2) Rheumatoid arthritis: Plan: Rheumatoid arthritis flare Reports Right Hand swelling/Jt tenderness improving Normal uric acid levels Follows with rheumatology as outpatient Received IV Decadron postoperative Continue chronic prednisone Continue home dose of steroids and Humira Hyperglycemia Likely secondary to steroids A1c of 5.6% Alcohol use disorder Monitor for any withdrawal Started on thiamine, folic acid On Ativan PRN (3) Hypertension: Plan: Continue current medications Monitor BP (4) Gout: Plan: Stable (5) GERD (gastroesophageal reflux disease): Plan: - Continue PPI Plan DVT Px: As per Primary Team Code Status Full Code Admission and Anticipated Discharge Date Admission Date: April 30, 2022 Subjective Patient seen and examined at bedside. He is comfortable; not in any distress. He is able to get up and walk without any issues. Review of Systems Review of Systems: All systems reviewed & are unremarkable except as noted in Subjective Physical Exam Physical Exam: Constitutional: WD/WN, vitals as above, NAD, sitting up in bed, pleasant, conversing easily Respiratory: normal respiratory effort, lungs clear to auscultation, no wheeze, rales, rhonchi. Normal insp/exp effort, no accessory muscle use Cardiovascular: RRR, no murmur, no edema Vessels: no JVD or carotid bruit Chest: normal inspection of chest Abdomen: normal bowel sounds, soft, nontender, no hepatosplenomegaly Musculoskeletal: no cyanosis or clubbing, extremities motor strength 5/5 Skin: no rashes, warm and dry normal turgor Neurologic: PERRL, EOMI, accommodation nl, no face palsy, no dysarthria CN's II- XI intact bilaterally and moves all extremities Psychiatric: A+Ox3, euthymic affect Lymphatic: no cervical or axillary lymphadenopathy : deferred Results & Data Results & Data ([facility]) Vital Signs (Past 12 Hours) Vital Signs Temp Pulse Pulse Resp BP BP Pulse Ox 05/02/22 11:34 36.5 C 83 90 18 133/80 150/79 H 96 05/02/22 08:10 36.5 C 90 18 133/80 96 O2 Del Method 05/02/22 11:34 05/02/22 08:10 Room Air Laboratory Results Laboratory Results WBC 15.31 K/ul (4.8-10.8) H 05/02/22 08:55 RBC 3.60 M/uL (4.63-6.08) L 05/02/22 08:55 Hgb 10.9 g/dl (14.0-18.0) L 05/02/22 08:55 Hct 32.5 % (40.1-51.0) L 05/02/22 08:55 MCV 90.3 fL (80.0-100.0) 05/02/22 08:55 MCH 30.3 pg (25.0-34.0) 05/02/22 08:55 MCHC 33.5 g/dL (32.0-36.0) 05/02/22 08:55 RDW Std Deviation 40.6 fL (36.4-46.3) 05/02/22 08:55 RDW Coeff of Lizzy 12.4 % (11.5-14.5) 05/02/22 08:55 Plt Count 233 K/uL (130-400) 05/02/22 08:55 MPV 10.6 fL (9.4-12.4) 05/02/22 08:55 Immature Gran % (Auto) 0.6 % 05/01/22 08:33 Neut % (Auto) 93.3 % 05/01/22 08:33 Lymph % (Auto) 2.8 % 05/01/22 08:33 [place] % (Auto) 3.2 % 05/01/22 08:33 Eos % (Auto) 0.0 % 05/01/22 08:33 Baso % (Auto) 0.1 % 05/01/22 08:33 Neut # (Auto) 21.54 K/uL (1.4-6.5) H 05/01/22 08:33 Lymph # (Auto) 0.64 K/uL (1.2-3.4) L 05/01/22 08:33 [place] # (Auto) 0.74 K/uL (0.24-0.82) 05/01/22 08:33 Eos # (Auto) 0.00 K/uL (0-0.50) 05/01/22 08:33 Baso # (Auto) 0.03 K/uL (0-0.2) 05/01/22 08:33 Immature Gran # (Auto) 0.15 K/uL (0.00-0.02) H 05/01/22 08:33 RBC Morphology Unremarkable 05/01/22 08:33 Sodium 137 mmol/L (136-145) 05/02/22 08:55 Potassium 3.6 mmol/L (3.5-5.1) 05/02/22 08:55 Chloride 101 mmol/L (98-107) 05/02/22 08:55 Carbon Dioxide 31 mmol/L (21-32) 05/02/22 08:55 Anion Gap 5 (3-11) 05/02/22 08:55 BUN 20 mg/dl (6-23) 05/02/22 08:55 Creatinine 0.78 mg/dl (0.6-1.4) 05/02/22 08:55 Est Cr Clr Drug Dosing 78.1 ml/min 05/02/22 08:55 Est GFR ( Amer) 100.2 ml/min 05/02/22 08:55 Est GFR (Non-Af Amer) 86.5 ml/min 05/02/22 08:55 BUN/Creatinine Ratio 25.6 (10-20) H 05/02/22 08:55 Glucose 117 mg/dl (70-99(Fasting)) H 05/02/22 08:55 Estimat Average Glucose 114 mg/dl 05/02/22 08:55 Hemoglobin A1c 5.6 % (4.5-5.6) 05/02/22 08:55 Uric Acid 2.9 mg/dl (2.6-7.2) 05/01/22 08:33 Calcium 9.2 mg/dl (8.5-10.1) 05/02/22 08:55 Magnesium 1.9 mg/dl (1.7-2.4) 05/01/22 08:33 SARS-CoV-2, RNA, NAAT NEGATIVE (NEGATIVE) 04/30/22 Unknown Impressions Lumbar Spine X-Ray 04/30/22 11:25 INTRAOPERATIVE RADIOGRAPHS CLINICAL HISTORY: L4-L5 spinal fusion. Fluoroscopy time: 20 seconds. FINDINGS: 2 spot fluoroscopic views of the lumbar spine are presented. There has been discectomy at L4-L5 with laminectomy and posterior fusion at this level. Interpedicular screws are in place. The orthopedic hardware appears intact. IMPRESSION: Intraoperative images from lumbar spinal fusion surgery as above. Electronically signed by: Saeid Dorantes M.D. 04/30/2022 1:45 PM
== END 2022-05-02 12:29 | disposition home or self-care (01) | DRG 455 ==
LOC: ASU 09:45 → 3N 13:27 → SUATTDRO 13:27